=== PATIENT | male | born 1985 | race Caucasian/White ===

== ENCOUNTER → 2017-09-12 | Outpatient (CLI) | payer BC | LOC: RAD 09:09 | DX: M21.822 Other specified acquired deformities of left upper arm (principal); S42.295S Other nondisplaced fracture of upper end of left humerus, sequela; X58.XXXS Exposure to other specified factors, sequela ==

== ENCOUNTER → 2019-09-26 | Outpatient (CLI) | payer BC ==
[2019-09-26 08:03] LABS: POTASSIUM 4.2 mmol/L (3.5-5.1)
[2019-09-26 08:04] LABS: ALBUMIN 4.3 g/dL (3.5-5.0)
[2019-09-26 08:05] LABS: CALCIUM 9.2 mg/dL (8.3-10.5)
[2019-09-26 08:08] LABS: TOTAL BILIRUBIN 0.4 mg/dL (0.2-1.2)
== END ==
LOC: LAB 07:39
PROVIDERS: Family Medicine
DX: Z00.00 Encounter for general adult medical examination without abnormal findings (principal); Z11.1 Encounter for screening for respiratory tuberculosis; Z23 Encounter for immunization; Z82.49 Family history of ischemic heart disease and other diseases of the circulatory system; Z83.3 Family history of diabetes mellitus; R09.89 Other specified symptoms and signs involving the circulatory and respiratory systems

== ENCOUNTER → 2020-05-19 | Outpatient (CLI) | payer BC | LOC: LAB 16:50 | DX: M79.10 Myalgia, unspecified site (principal); J02.9 Acute pharyngitis, unspecified; R07.89 Other chest pain; Z20.828 Contact with and (suspected) exposure to other viral communicable diseases ==

== ENCOUNTER → 2020-09-17 | Outpatient (CLI) | payer BC | LOC: RAD 07:00 | DX: J32.9 Chronic sinusitis, unspecified (principal) ==

== ENCOUNTER → 2020-10-07 | Outpatient (CLI) | payer BC | LOC: LAB 18:10 | DX: R51.9 Headache, unspecified (principal); R53.83 Other fatigue; R09.81 Nasal congestion; Z20.828 Contact with and (suspected) exposure to other viral communicable diseases ==

== ENCOUNTER → 2021-07-06 | Outpatient (CLI) | payer OTHER | LOC: LAB 10:10 | DX: Z20.822 Contact with and (suspected) exposure to COVID-19 (principal) ==

== ENCOUNTER → 2021-12-20 | Outpatient (CLI) | payer OTHER | LOC: LAB 13:43 | DX: R53.83 Other fatigue (principal); Z20.822 Contact with and (suspected) exposure to COVID-19 ==

== ENCOUNTER → 2022-07-20 | Outpatient (CLI) | payer OTHER | LOC: EDBD 10:32 → LAB 10:32 | DX: U07.1 COVID-19 (principal) ==

== ENCOUNTER → 2022-08-04 | Outpatient (CLI) | payer OTHER ==
[2022-08-04 11:27] LABS: BASO # 0.04 K/mm3 (0.02-0.10); EOS # 0.12 K/mm3 (0.04-0.40); EOS % 1.7 % (0.0-4.0); HEMATOCRIT 42.6 % (42.0-52.0); HEMOGLOBIN 14.7 g/dL (13.5-18.0); LYMPH# 2.33 K/mm3 (1.50-4.00); MEAN CELL VOLUME 87 fl (78-100); MEAN CORPUSCULAR HEMOGLOBIN 30 pg (27-31); MEAN CORPUSCULAR HGB CONC 35 g/dL (33-37); MEAN PLATELET VOLUME 8.9 fl (7.4-10.4); MONO # 0.58 K/mm3 (0.20-0.80); NEU # 4.05 K/mm3 (1.40-6.50); PLATELET COUNT 420 K/mm3 (130-400); RED BLOOD COUNT 4.88 M/mm3 (4.20-5.60); RED CELL DISTRIBUTION WIDTH 12.6 % (11.5-14.5); WHITE BLOOD COUNT 7.1 K/mm3 (4.8-10.8)
[2022-08-04 11:40] LABS: ALBUMIN 4.6 g/dL (3.5-5.0); POTASSIUM 4.3 mmol/L (3.5-5.1)
[2022-08-04 11:42] LABS: CALCIUM 9.6 mg/dL (8.3-10.5)
[2022-08-04 11:43] LABS: TOTAL PROTEIN 7.6 g/dL (6.4-8.3)
[2022-08-04 11:45] LABS: TOTAL BILIRUBIN 0.4 mg/dL (0.2-1.2)
[2022-08-04 11:57] LABS: URINE APPEARANCE CLEAR; URINE BILIRUBIN NEGATIVE (NEGATIVE); URINE BLOOD NEGATIVE (NEGATIVE); URINE COLOR YELLOW; URINE GLUCOSE NEGATIVE (NEGATIVE); URINE KETONE NEGATIVE (NEGATIVE); URINE LEUKOCYTE ESTERASE NEGATIVE (NEGATIVE); URINE NITRATE NEGATIVE (NEGATIVE); URINE PROTEIN(semi-quant) NEGATIVE (NEGATIVE); URINE UROBILINOGEN NORMAL (NORMAL); URINE WBC 0-1 /hpf (0-3)
[2022-08-04 11:58] LABS: URINE MUCUS PRESENT (NOT PRESENT)
== END ==
LOC: AMSURD 11:12 → LAB 11:12
PROVIDERS: Family Medicine
DX: Z00.00 Encounter for general adult medical examination without abnormal findings (principal); I10 Essential (primary) hypertension; Z83.49 Family history of other endocrine, nutritional and metabolic diseases

== ENCOUNTER → 2023-07-26 | Outpatient (CLI) | payer BC | LOC: LAB 08:53 | DX: Z00.00 Encounter for general adult medical examination without abnormal findings (principal); Z13.220 Encounter for screening for lipoid disorders; M25.552 Pain in left hip ==

== ENCOUNTER → 2024-04-01 | Outpatient (CLI) | payer BC ==
[2024-05-21 14:57] LABS: CALCIUM 9.3 mg/dL (8.3-10.5)
[2024-05-24 13:17] LABS: CREATININE OTHER SOURCE AMS
== END ==
LOC: LAB 12:00
PROVIDERS: Family Medicine
DX: I10 Essential (primary) hypertension (principal)